=== PATIENT | male | born 1975 | race Caucasian/White ===

== ENCOUNTER 2024-01-14 20:51 | Observation (INO) | payer OTHER ==
[~2024-01-14] VITALS: Ht 177.8 cm; Wt 124.0 kg
[2024-01-14 21:28] LABS: Source, Urine Clean Catch
[2024-01-14 21:30] LABS: Appearance, Urine Clear (Clear); Bilirubin, Urine Neg (Neg); Blood, Urine 3+ (Neg); Color, Urine Yellow (P-Yellow); Glucose Qualitative, Urine Neg (Neg); Ketones, Urine 4+ (Neg); Leukocyte Esterase, Urine Neg (Neg); Nitrite, Urine Neg (Neg); Protein, Urine 1+ (Neg); Specific Gravity, Urine 1.025 (1.003-1.022); Urobilinogen, Urine NORM (Normal)
[2024-01-14 21:41] LABS: Bacteria Rare /hpf; Squamous Epithelial Cells Not Seen /hpf (Few); White Blood Cells, Urine 0-2 /hpf (0-5)
[2024-01-14 21:42] LABS: BASOPHILS ABSOLUTE AUTO 0.04 K/mm3 (0.00-0.23); BASOPHILS PERCENT AUTO 0 % (0-2); EOSINOPHILS ABSOLUTE AUTO 0.02 K/mm3 (0.00-0.68); EOSINOPHILS PERCENT AUTO 0 % (0-6); Hematocrit 42.4 % (37.0-53.0); Hemoglobin 14.4 g/dL (13.5-17.5); IMMATURE GRAN PERCENT AUTO 1 % (0-1); LYMPHOCYTES ABSOLUTE AUTO 1.44 K/mm3 (0.84-5.20); LYMPHOCYTES PERCENT AUTO 10 % (21-46); MONOCYTES ABSOLUTE AUTO 0.81 K/mm3 (0.16-1.47); MONOCYTES PERCENT AUTO 6 % (4-13); Mean Corpuscular HGB 29.5 pg (26.0-34.0); Mean Corpuscular Volume 87 fL (80-100); NEUTROPHILS ABSOLUTE AUTO 12.44 K/mm3 (1.96-9.15); NEUTROPHILS PERCENT AUTO 84 % (41-73); RDW Coefficient Variation 12.9 % (11.7-14.2); RDW Standard Deviation 40.5 fL (35.1-46.3); Red Blood Cell Count 4.88 M/mm3 (4.30-5.90); White Blood Cell Count 14.85 K/mm3 (4.00-11.30)
[2024-01-14 21:57] LABS: Albumin, Blood 4.2 g/dL (3.4-5.0); Albumin/Globulin Ratio 1.2 (0.8-1.8); Bilirubin, Total 0.9 mg/dL (0.1-1.0); Bun/Creatinine Ratio 11.1 (12.0-20.0); Calcium, Blood 9.7 mg/dL (8.5-10.1); Creatinine, Blood 0.9 mg/dL (0.60-1.20); Globulin, Blood 3.4 g/dL (2.2-4.0); Potassium, Blood 3.8 mmol/L (3.5-5.5); Total Protein, Blood 7.6 g/dL (6.4-8.2)
[2024-01-14] MEDS ORDERED: Morphine Sulfate 4 MG/1 ML Injection IV ONE (23:35)
[2024-01-14] MEDS ORDERED: Ondansetron HCl 2 MG / ML 2ML Vial IV ONE (23:35)
[2024-01-15] VITALS (12 sets, daily range): BP systolic 117–157; BP diastolic 70–92
[2024-01-15] MEDS ORDERED: Ondansetron HCl 2 MG / ML 2ML Vial IV PRN ×3 (01:05→09:15)
[2024-01-15] MEDS ORDERED: FentaNYL Citrate 50 MCG/ML 2 ML Injection IV PRN ×4 (01:05→09:15)
[2024-01-15] MEDS ORDERED: CefOXitin Sodium 2,000 MG in NS 100 ML IV ONE (01:05)
[2024-01-15] MEDS ORDERED: Lactated Ringer's 1,000 ML IV SCH (01:05)
[2024-01-15] MEDS ORDERED: Acetaminophen 325 MG TABLET PO PRN (02:30)
--- NOTE | 2024-01-15 06:15 | NUR ---
SHIFT SUMMARY AOX4. VSS. ADMITTED FOR ACUTE APPENDICITIS. REPORTS 02/21 [facility] RLQ PAIN WORSE W/MOVEMENT OR TOUCH. STATES PAIN TOLERABLE WHILE @REST ITS A 10/22. REPORTS HE HAD NAUSEA INITIALLY UPON COMING TO HOSPITAL. HE WAS MEDICATED IN ER W/ZOFRAN & MORPHINE. DENIES NAUSEA @THIS TIME. REPORTS LACK OF APPETITE. ACTIVE BT. REPORTS HEADACHE & HAS BEEN NPO EXCEPT SM SIP OF WATER W/TYLENOL. CALL LIGHT IN REACH.
[2024-01-15] MEDS ORDERED: OxyCODONE HCL 5 MG TAB PO PRN (07:10)
[2024-01-15] MEDS ORDERED: HYDROmorphone HCl/Pf 1MG SYR IV PRN (07:10)
[2024-01-15] MEDS ORDERED: Ketorolac Tromethamine 15mg Vial IV PRN (07:20)
[2024-01-15] MEDS ORDERED: Ampicillin Sod/Sulbactam Sod 3 GM in NS 100 ML IV SCH (08:00)
[2024-01-15] MEDS ORDERED: propofoL 20 ML IV ONE (09:00)
[2024-01-15] MEDS ORDERED: FentaNYL Citrate 50 MCG/ML 2 ML Injection ONE (09:01)
[2024-01-15] MEDS ORDERED: Rocuronium Bromide 10 MG/ML 5ML Injection IV ONE ×2 (09:01→09:23)
[2024-01-15] MEDS ORDERED: Lidocaine HCl 2% Jelly 120MG/6ML SYR (20MG PER ML) ONE (09:02)
[2024-01-15] MEDS ORDERED: Bupivacaine 0.5% HCl 5 MG/ML 30MLVIAL ONE (09:05)
[2024-01-15] MEDS ORDERED: Midazolam HCl 1MG / ML 2ML Vial ONE (09:17)
--- NOTE | 2024-01-15 09:29 | NUR ---
TO OR AT 0915. FAMILY BEDSIDE. NADN, OR NURSE PUSHING BED TO OR.
[2024-01-15] MEDS ORDERED: Dexamethasone Sod Phos 10 MG/ML 1ML VIAL ONE (09:43)
[2024-01-15] MEDS ORDERED: Ondansetron HCl 2 MG / ML 2ML Vial ONE (09:43)
[2024-01-15] MEDS ORDERED: Sugammadex Sodium 200 MG/2ML SDV (100 MG/ML) ONE (10:17)
[2024-01-15] MEDS ORDERED: Flumazenil 0.1 MG / ML 5ML Vial ONE (10:22)
[2024-01-15] MEDS ORDERED: HYDROcodone 5-APAP 325 TAB PO PRN (10:35)
[2024-01-15] MEDS ORDERED: HYDR1TAB94 PO (11:12)
--- NOTE | 2024-01-15 11:13 | NUR ---
TO ROOM PT BACK TO ROOM POST OP. AAOX4. VSS. TOLERATING PO FLUIDS, SALINE LOCKED. DR ORTIZ AT [facility], REPORTING CALLED IN SCRIPT TO MADY TIDWELL, PT INFORMED. FAMILY AT BEDSIDE. SURGICAL INCISIONS X3 C/D/I. WILL MEDICATE WHEN NEEDED FOR PAIN PER ORDERS.
--- NOTE | 2024-01-15 13:52 | NUR ---
DISCHARGED IV DC'D WNL. DISCHARGE INSTRUCTIONS GIVEN, QUESTIONS ANSWERED. BELONGING WITH PT. SIGNIFICANT OTHER ASSISTING PT TO PERSONAL VEHICLE. NO ACUTE DISTRESS NOTED.
== END 2024-01-15 13:29 | disposition home or self-care (01) ==
LOC: ER 20:51 → SURS 20:52
PROVIDERS: Student in an Organized Health Care Education/Training Program; ADMIT Surgery
PROC: 0DTJ4ZZ Resection of Appendix, Percutaneous Endoscopic Approach (ICD-10-PCS; principal; 2024-01-15 09:30)
DX: K35.80 Unspecified acute appendicitis (principal); E66.9 Obesity, unspecified; Z68.39 Body mass index [BMI] 39.0-39.9, adult
CPT/HCPCS: 74177; 80053; 81001; 85025; 88304; 96365; 96374; 96375; 99285-25; A9270; G0378; J0295; J0694; J1100; J2250; J2270; J2405; J2704; J3010; J7120; Q9967

== ENCOUNTER 2024-04-17 09:09 | Day surgery (SDC) | payer OTHER ==
[~2024-04-17] VITALS: Ht 180.3 cm; Wt 130.1 kg
[~2024-04-17 09:09] MED LIST: HYDR1TAB94 PO; propofoL 50 ML IV ONE
[2024-04-17] MEDS ORDERED: Lactated Ringer's 1,000 ML IV ONE (09:41)
[2024-04-17] MEDS ORDERED: Lidocaine HCl/Pf 1% 5 ML VIAL ONE (10:52)
[2024-04-17 12:36] VITALS: BP 123/82
== END 2024-04-17 10:41 | disposition home or self-care (01) ==
LOC: ORSCSDS 09:09
PROVIDERS: Surgery
PROC: 0DJD8ZZ Inspection of Lower Intestinal Tract, Via Natural or Artificial Opening Endoscopic (ICD-10-PCS; principal; 2024-04-17 09:30)
DX: Z12.11 Encounter for screening for malignant neoplasm of colon (principal); D12.5 Benign neoplasm of sigmoid colon; K57.30 Diverticulosis of large intestine without perforation or abscess without bleeding
CPT/HCPCS: 88305; J2001; J2704